=== PATIENT | female | born 1930 | race Caucasian/White ===

== ENCOUNTER 2021-04-20 09:51 | Emergency (ER) | payer MEDICARE, OTHER ==
[2021-04-20] MEDS ORDERED: Sodium Chloride 0.9% 10 ML Syringe FLUSH PRN (10:11)
[2021-04-20] MEDS ORDERED: Metolazone 2.5 MG Tab PO STA (10:12)
[2021-04-20] MEDS ORDERED: Furosemide 40 MG/4 ML VIAL IVPUSH ONE (10:12)
[2021-04-20 10:21] VITALS: PULSE 93
--- NOTE | 2021-04-20 12:02 | EDM.PDOC ---
ED HPI GENERAL MEDICAL PROBLEM - General Chief Complaint: Cardiovascular Problem Stated Complaint: SOB Time Seen by Provider: 04/20/21 10:00 Source of Information: Reports: Patient, Family History Limitations: Reports: No Limitations - History of Present Illness INITIAL COMMENTS - FREE TEXT/NARRATIVE: Patient presented to the ED because of dyspnea for 3 days,chest pain and wea kness. She is being treated because of COPD exacerbation for 5 days now with steroids,an antibiotics , and neb treatments. There is no associated fever, chills but she has a non-productive cough and wants to cough out her phlegm but she can't. Chest Pain Score (Numeric/FACES): 9 - Related Data Allergies Allergy/AdvReac Type Severity Reaction Status Date / Time budesonide [From Symbicort] Allergy Other Verified 04/20/21 10:05 formoterol fumarate Allergy Other Verified 04/20/21 10:05 [From Symbicort] Sulfa (Sulfonamide Allergy Rash Verified 04/20/21 10:05 Antibiotics) Home Meds: Home Meds Acetaminophen [Tylenol Extra Strength] 1,000 mg PO DAILY PRN 06/30/15 [History] Lutein 6 mg PO DAILY 06/30/15 [History] Montelukast [Singulair] 10 mg PO DAILY 06/30/15 [History] Multivitamin [Multivitamins] 1 tab PO DAILY 06/30/15 [History] diphenhydrAMINE [Benadryl] 25 mg PO BEDTIME 06/30/15 [History] Beclomethasone Dipropionate [Qvar 40 Mcg] 2 puff INH BID 07/01/15 [History] Ipratropium [Atrovent] 2.5 ml INH QID 07/01/15 [History] raNITIdine HCL [Zantac 75] 75 mg PO DAILY PRN 04/06/16 [History] Codeine/guaiFENesin [Robitussin AC] 10 ml PO Q6H PRN #0 cup 04/09/16 [Rx] Diltiazem [Cardizem CD] 240 mg PO DAILY #30 cap.cd 04/09/16 [Rx] Furosemide [Lasix] 20 mg PO DAILY #30 tablet 04/09/16 [Rx] Metoprolol Tartrate [Lopressor] 50 mg PO Q12H tablet 04/09/16 [Rx] Polyethylene Glycol 3350 [MiraLAX] 17 gm PO DAILY PRN #0 packet 04/09/16 [Rx] Prednisone [IJD: predniSONE] 10 mg PO WITHBREAKFAST tablet 04/09/16 [Rx] Warfarin [Coumadin] 2.5 mg PO 1600 tablet 04/09/16 [Rx] guaiFENesin [Mucinex] 600 mg PO BID #10 tab.er 04/20/21 [Rx] Past Medical History HEENT History: Reports: Cataract, Impaired Vision Cardiovascular History: Reports: Afib, Blood Clots/VTE/DVT, Hypertension, Other (See Below) Other Cardiovascular History: IRREGULAR HEART RATE BUT NOT FIB REPORTED Respiratory History: Reports: Asthma, Bronchitis, Recurrent, COPD, Pneumonia, Recurrent, SOB Gastrointestinal History: Reports: Bowel Obstruction, Diverticulosis, Hiatal Hernia Genitourinary History: Reports: UTI, Recurrent Other Genitourinary History: 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 HISTORY OF REUMATIC FEVER A [employer] History: Reports: Musculoskeletal History: Reports: Back Pain, Chronic, Osteoarthritis Endocrine/Metabolic History: Reports: Osteoporosis Hematologic History: Reports: Other (See Below) Other Hematologic History: GI bleed Oncologic (Cancer) History: Reports: Colon, Renal Dermatologic History: Reports: Other (See Below) Other Dermatologic History: DRY SKIN IN WINTER TIME. - Past Surgical History HEENT Surgical History: Reports: Cataract Surgery, Tonsillectomy, Other (See Below) Cardiovascular Surgical History: Reports: Vascular Surgery, Other (See Below) Female Surgical History: Reports: Nephrectomy, Other (See Below) Musculoskeletal Surgical History: Reports: Other (See Below) ED ROS GENERAL - Review of Systems Review Of Systems: See Below Constitutional: Reports: No Symptoms HEENT: Reports: No Symptoms Respiratory: Reports: Cough Cardiovascular: Reports: No Symptoms Endocrine: Reports: No Symptoms GI/Abdominal: Reports: No Symptoms Musculoskeletal: Reports: No Symptoms Skin: Reports: No Symptoms Neurological: Reports: No Symptoms Psychiatric: Reports: No Symptoms Hematologic/Lymphatic: Reports: No Symptoms Immunologic: Reports: No Symptoms ED EXAM, GENERAL - Physical Exam Exam: See Below Exam Limited By: No Limitations General Appearance: Alert, No Apparent Distress Nose: Normal Inspection, Normal Mucosa Throat/Mouth: Normal Inspection Head: Atraumatic, Normocephalic Neck: Normal Inspection, Supple, Non-Tender Respiratory/Chest: No Respiratory Distress, Rhonchi Cardiovascular: Normal Peripheral Pulses, Regular Rate, Rhythm, No Edema GI/Abdominal: Normal Bowel Sounds, Soft, Non-Tender, No Organomegaly Back Exam: Normal Inspection, Full Range of Motion Extremities: Normal Inspection, Normal Range of Motion, Non-Tender Neurological: Alert, Oriented, CN II-XII Intact Psychiatric: Normal Affect, Normal Mood Skin Exam: Warm, Dry, Intact, Normal Color #1 Interpretation EKG Date: 04/20/21 Time: 09:58 Rhythm: A-Fib Rate (Beats/Min): 80 Lorman: Normal P-Wave: Present QRS: RBBB ST-T: Normal QT: Normal Comparison: No Change EKG Interpretation Comments: AFIB RBBB Course - Vital Signs Text/Narrative:: Lab/EKG/CXR result was reviewed and discussed with patient and her daughter Last Recorded V/S: Last Vital Signs Temp 36.3 C 04/20/21 09:51 Pulse 93 04/20/21 11:45 Resp 20 04/20/21 11:45 BP 139/83 04/20/21 11:45 Pulse Ox 92 L 04/20/21 11:45 - Orders/Labs/Meds Labs: Laboratory Tests 04/20/21 04/20/21 04/20/21 Range/Units 10:35 10:35 10:35 WBC 18.4 H (3.0-10.3) x10-3/uL RBC 4.79 (3.60-5.20) x10(6)uL Hgb 15.0 (11.4-15.5) g/dL Hct 47.0 (34.2-48.2) % MCV 98.0 (76.7-100.5) fL MCH 31.2 (23.9-33.9) pg MCHC 31.9 (31.9-34.8) g/dL RDW 14.4 (12.3-16.5) % Plt Count 762 H (151-488) x10(3)uL MPV 9.1 (7.1-12.4) fL Add Manual Diff Yes Neutrophils % (Manual) 90 H (46-82) % Lymphocytes % (Manual) 6 L (13-37) % Monocytes % (Manual) 4 (4-12) % Sodium 143 (135-145) mmol/L Potassium 4.7 (3.5-5.3) mmol/L Chloride 103 (100-110) mmol/L Carbon Dioxide 32 (21-32) mmol/L BUN 35 H (7-18) mg/dL Creatinine 1.2 H (0.55-1.02) mg/dL Est Cr Clr Drug Dosing 26.81 mL/min Estimated GFR (MDRD) 42 L (>60) BUN/Creatinine Ratio 29.2 H (9-20) Glucose 108 (80-116) mg/dL Calcium 9.2 (8.6-10.2) mg/dL Total Bilirubin 0.9 (0.1-1.3) mg/dL AST 32 H (5-25) IU/L ALT 29 (12-36) U/L Alkaline Phosphatase 68 (56-112) IU/L Troponin I 12.9 (4.0-60.3) pg/mL Total Protein 7.0 (6.0-8.0) g/dL Albumin 4.1 (3.2-4.6) g/dL Globulin 2.9 g/dL Albumin/Globulin Ratio 1.4 Urine Color (YELLOW) Urine Appearance (CLEAR) Urine pH (5.0-6.5) Ur Specific [place] (1.010-1.025) Urine Protein (NEGATIVE) mg/dL Urine Glucose (UA) (NORMAL) mg/dL Urine Ketones (NEGATIVE) mg/dL Urine Occult Blood (NEGATIVE) Urine Nitrite (NEGATIVE) Urine Bilirubin (NEGATIVE) Urine Urobilinogen (NEGATIVE) mg/dL Ur Leukocyte Esterase (NEGATIVE) Urine RBC (0-5) Urine WBC (0-5) Ur Squamous Epith Cells (NS,R,O) Urine Bacteria (NS) 04/20/21 Range/Units 12:00 WBC (3.0-10.3) x10-3/uL RBC (3.60-5.20) x10(6)uL Hgb (11.4-15.5) g/dL Hct (34.2-48.2) % MCV (76.7-100.5) fL MCH (23.9-33.9) pg MCHC (31.9-34.8) g/dL RDW (12.3-16.5) % Plt Count (151-488) x10(3)uL MPV (7.1-12.4) fL Add Manual Diff Neutrophils % (Manual) (46-82) % Lymphocytes % (Manual) (13-37) % Monocytes % (Manual) (4-12) % Sodium (135-145) mmol/L Potassium (3.5-5.3) mmol/L Chloride (100-110) mmol/L Carbon Dioxide (21-32) mmol/L BUN (7-18) mg/dL Creatinine (0.55-1.02) mg/dL Est Cr Clr Drug Dosing mL/min Estimated GFR (MDRD) (>60) BUN/Creatinine Ratio (9-20) Glucose (80-116) mg/dL Calcium (8.6-10.2) mg/dL Total Bilirubin (0.1-1.3) mg/dL AST (5-25) IU/L ALT (12-36) U/L Alkaline Phosphatase (56-112) IU/L Troponin I (4.0-60.3) pg/mL Total Protein (6.0-8.0) g/dL Albumin (3.2-4.6) g/dL Globulin g/dL Albumin/Globulin Ratio Urine Color Yellow (YELLOW) Urine Appearance Clear (CLEAR) Urine pH 5.0 (5.0-6.5) Ur Specific [place] 1.020 (1.010-1.025) Urine Protein Negative (NEGATIVE) mg/dL Urine Glucose (UA) Normal (NORMAL) mg/dL Urine Ketones Negative (NEGATIVE) mg/dL Urine Occult Blood Negative (NEGATIVE) Urine Nitrite Negative (NEGATIVE) Urine Bilirubin Negative (NEGATIVE) Urine Urobilinogen Normal (NEGATIVE) mg/dL Ur Leukocyte Esterase Negative (NEGATIVE) Urine RBC 0-5 (0-5) Urine WBC 0-5 (0-5) Ur Squamous Epith Cells Few H (NS,R,O) Urine Bacteria Few H (NS) Meds: Medications Discontinued Medications Generic Name Dose Route Start Last Admin Trade Name Freq PRN Reason Stop Dose Admin Furosemide 40 mg 04/20/21 10:12 Furosemide 40 Mg/4 Ml Vial IVPUSH 04/20/21 10:13 NOW ONE Metolazone 2.5 mg 04/20/21 10:12 Metolazone 2.5 Mg Tab PO 04/20/21 10:13 NOW STA Sodium Chloride 10 ml 04/20/21 10:11 Sodium Chloride 0.9% 10 Ml Syringe FLUSH ASDIRECTED PRN Keep Vein Open Departure - Departure Time of Disposition: 12:00 Disposition: Home, Self-Care 01 Condition: Good Clinical Impression: Dehydration, COPD (chronic obstructive pulmonary disease) Prescriptions: guaiFENesin [Mucinex] 600 mg PO BID #10 tab.er Instructions: Chronic Obstructive Pulmonary Disease Exacerbation, [id number], Dehydration, Elderly, [id number] Referrals: Tony Avendano MD [Primary Care Provider] - Forms: ED Department Discharge Additional Instructions: Please read discharge instructions on dehydration and COPD Drink at least 1.5 liters of fluids daily for 3 days Continue your nebulizer treatment and steroids Take Mucinex 600 mg twice daily for 5 day We will call you with regards for the result of your urine test Sepsis Event Note (ED) - Evaluation Sepsis Screening Result: No Definite Risk
[2021-04-20 15:58] VITALS: BP 139/83
--- NOTE | 2021-04-20 17:19 | CR ---
INDICATION: Dyspnea. CHEST ONE VIEW: AP portable upright view of the chest 04/20/21 was compared with 04/09/16 and 04/08/16, again revealing the heart to be enlarged with tortuous aorta calcified in the arch. Overlying EKG leads are noted. Bibasilar pleuroparenchymal changes are noted which may be on the basis of pneumonia and pleuritis, more prominent on the left than right. Moderately large fixed hiatal hernia is noted. There appears to be some hyperaeration and flattening of diaphragm leaf suggesting COPD - correlate clinically. IMPRESSION: 1. ASHD with cardiomegaly - no definite CHF. 2. Bibasilar pleuroparenchymal changes compatible with pneumonia and pleuritis, somewhat more prominent on the left than right. 3. Probable COPD - correlate clinically. MTDD
== END 2021-04-20 12:30 | disposition home or self-care (01) ==
LOC: FB.ED 09:51
DX: J44.9 Chronic obstructive pulmonary disease, unspecified (principal); E86.0 Dehydration; I10 Essential (primary) hypertension; Z88.2 Allergy status to sulfonamides; Z88.8 Allergy status to other drugs, medicaments and biological substances
CPT/HCPCS: 36415; 71045; 80053; 81001; 84484; 85025; 93005; 93010; 99284; 99285-25

== ENCOUNTER 2022-03-04 12:10 | Inpatient (IN) | payer MEDICARE, OTHER ==
[2022-03-04 13:18] LABS: BASE EXCESS VENOUS,POC 16 mmol/L (-2 - 3+); PCO2 VENOUS,POC 65 mmHg (41-51); PH VENOUS,POC 7.44 pH Units (7.32-7.43)
[2022-03-04 15:50] LABS: CORONAVIRUS COVID-19 NAA NEGATIVE (NEGATIVE)
[2022-03-04] MEDS ORDERED: Sodium Chloride 0.9% 10 ML Syringe FLUSH PRN (16:54)
[2022-03-04] MEDS ORDERED: Warfarin Sliding Scale PO SCH (17:00)
[2022-03-04] MEDS ORDERED: Warfarin 5 MG Tab PO ONE (17:15)
[2022-03-04] MEDS ORDERED: guaiFENesin 100 MG/5 ML Soln 5 ML UD Cup PO PRN (17:38)
[2022-03-04] MEDS ORDERED: Loperamide 2 MG Cap PO PRN (17:38)
[2022-03-04] MEDS ORDERED: Nitroglycerin 0.4 MG Tab.SL SL PRN (17:38)
[2022-03-04] MEDS ORDERED: Carboxymethylcellulose Sodium 0.5% Ophth Soln 15 ML Bottle EYEBOTH PRN (17:38)
[2022-03-04] MEDS ORDERED: Bisacodyl 10 MG Supp RECTAL PRN (17:38)
[2022-03-04] MEDS ORDERED: Acetaminophen 500 MG Tab PO PRN (17:38)
[2022-03-04] MEDS ORDERED: Magnesium Hydroxide 400 MG/5 ML Susp 30 ML Cup PO PRN (17:38)
[2022-03-04] MEDS ORDERED: Albuterol/Ipratropium 3.0-0.5 MG/3 ML Neb Soln INH PRN (17:38)
[2022-03-04] MEDS: Sodium Chloride 0.9% 1,000 ML IV SCH (18:00)
[2022-03-04] MEDS ORDERED: Aluminum Hydroxide/Magnesium Hydroxide Susp 30 ML Cup PO PRN (18:04)
[2022-03-04] MEDS: Metoprolol Tartrate 100 MG Tab PO SCH (21:20)
[2022-03-04] MEDS: Acetaminophen 325 MG Tab PO SCH (21:20)
[2022-03-04] MEDS: diphenhydrAMINE 50 MG Cap PO SCH (21:21)
[2022-03-04] MEDS: Melatonin 3 MG Tab PO SCH (21:21)
[2022-03-05] MEDS: Magnesium Oxide 400 MG Tab PO SCH (08:32)
[2022-03-05] MEDS: Multivitamin Tab PO SCH (08:32)
[2022-03-05] MEDS: Acetaminophen 325 MG Tab PO SCH ×3 (08:32→20:33)
[2022-03-05] MEDS: Cholecalciferol (Vitamin D3) 25 MCG Tab PO SCH (08:33)
[2022-03-05] MEDS: Isosorbide Mononitrate 30 MG Tab.ER PO SCH (08:33)
[2022-03-05] MEDS: Montelukast 10 MG Tab PO SCH (08:34)
[2022-03-05] MEDS ORDERED: acetaZOLAMIDE 250 MG Tab PO ONE ×2 (08:41)
[2022-03-05] MEDS ORDERED: Non-Formulary Medication 1 Each (Cholecalciferol (Vitamin D3) [Vitamin D3] 10 MCG Tablet) PO SCH (09:00)
[2022-03-05] MEDS: Metoprolol Tartrate 100 MG Tab PO SCH ×2 (09:54→20:32)
[2022-03-05] MEDS: QVAR 40 MCG INH SCH ×2 (14:03→20:35)
[2022-03-05] MEDS: Sodium Chloride 0.9% 1,000 ML IV SCH (14:18)
[2022-03-05] MEDS ORDERED: Warfarin 5 MG Tab PO ONE (16:00)
[2022-03-05] MEDS: Melatonin 3 MG Tab PO SCH (20:33)
[2022-03-05] MEDS: diphenhydrAMINE 50 MG Cap PO SCH (20:33)
[2022-03-06] MEDS ORDERED: acetaZOLAMIDE 250 MG Tab PO ONE (08:24)
[2022-03-06] MEDS: Isosorbide Mononitrate 30 MG Tab.ER PO SCH (09:45)
[2022-03-06] MEDS: Magnesium Oxide 400 MG Tab PO SCH (09:48)
[2022-03-06] MEDS: Metoprolol Tartrate 100 MG Tab PO SCH ×2 (09:48→20:18)
[2022-03-06] MEDS: Montelukast 10 MG Tab PO SCH (09:49)
[2022-03-06] MEDS: Acetaminophen 325 MG Tab PO SCH ×3 (09:49→20:18)
[2022-03-06] MEDS: Multivitamin Tab PO SCH (09:49)
[2022-03-06] MEDS: Cholecalciferol (Vitamin D3) 25 MCG Tab PO SCH (09:50)
[2022-03-06] MEDS: QVAR 40 MCG INH SCH ×2 (09:51→20:19)
[2022-03-06] MEDS ORDERED: Warfarin 5 MG, Warfarin 2.5 MG PO ONE ×2 (16:00)
[2022-03-06] MEDS: Melatonin 3 MG Tab PO SCH (20:17)
[2022-03-06] MEDS: diphenhydrAMINE 50 MG Cap PO SCH (20:18)
[2022-03-07 06:58] LABS: BASE EXCESS VENOUS,POC 9 mmol/L (-2 - 3+); PCO2 VENOUS,POC 78 mmHg (41-51)
[2022-03-07] MEDS: QVAR 40 MCG INH SCH (08:24)
[2022-03-07 08:59] VITALS: BP 133/61; PULSE 72
[2022-03-07] MEDS: Isosorbide Mononitrate 30 MG Tab.ER PO SCH (09:11)
[2022-03-07] MEDS: Metoprolol Tartrate 100 MG Tab PO SCH (09:12)
[2022-03-07] MEDS: Multivitamin Tab PO SCH (09:12)
[2022-03-07] MEDS: Magnesium Oxide 400 MG Tab PO SCH (09:12)
[2022-03-07] MEDS: Montelukast 10 MG Tab PO SCH (09:12)
[2022-03-07] MEDS: Cholecalciferol (Vitamin D3) 25 MCG Tab PO SCH (09:12)
[2022-03-07] MEDS: Acetaminophen 325 MG Tab PO SCH (09:13)
[2022-03-08] MEDS ORDERED: acetaZOLAMIDE 250 MG Tab PO SCH (08:00)
== END 2022-03-07 12:20 | disposition home health service (06) | DRG 641 ==
LOC: FB.ED 12:10 → FB.MS 15:39
PROVIDERS: ADMIT Family Medicine; ATTEND Family Medicine
DX: E87.3 Alkalosis (principal); I48.20 Chronic atrial fibrillation, unspecified; I50.32 Chronic diastolic (congestive) heart failure; I82.409 Acute embolism and thrombosis of unspecified deep veins of unspecified lower extremity; N17.9 Acute kidney failure, unspecified; I13.0 Hypertensive heart and chronic kidney disease with heart failure and stage 1 through stage 4 chronic kidney disease, or unspecified chronic kidney disease; D68.8 Other specified coagulation defects; E87.8 Other disorders of electrolyte and fluid balance, not elsewhere classified; Z20.822 Contact with and (suspected) exposure to COVID-19; Z66 Do not resuscitate; R06.00 Dyspnea, unspecified; R60.9 Edema, unspecified; E86.9 Volume depletion, unspecified; T50.2X5A Adverse effect of carbonic-anhydrase inhibitors, benzothiadiazides and other diuretics, initial encounter; N18.9 Chronic kidney disease, unspecified; Z79.01 Long term (current) use of anticoagulants; Z79.899 Other long term (current) drug therapy; H54.7 Unspecified visual loss; I48.91 Unspecified atrial fibrillation; Z86.718 Personal history of other venous thrombosis and embolism; R53.1 Weakness; K57.90 Diverticulosis of intestine, part unspecified, without perforation or abscess without bleeding; K44.9 Diaphragmatic hernia without obstruction or gangrene; R79.1 Abnormal coagulation profile; I87.2 Venous insufficiency (chronic) (peripheral); Z85.038 Personal history of other malignant neoplasm of large intestine; Z85.42 Personal history of malignant neoplasm of other parts of uterus; J44.9 Chronic obstructive pulmonary disease, unspecified; J45.40 Moderate persistent asthma, uncomplicated; M19.90 Unspecified osteoarthritis, unspecified site; M81.0 Age-related osteoporosis without current pathological fracture; Z98.49 Cataract extraction status, unspecified eye; Z85.048 Personal history of other malignant neoplasm of rectum, rectosigmoid junction, and anus; Z85.528 Personal history of other malignant neoplasm of kidney; Z90.5 Acquired absence of kidney; Z88.2 Allergy status to sulfonamides; Z88.8 Allergy status to other drugs, medicaments and biological substances; Z87.440 Personal history of urinary (tract) infections; Z87.01 Personal history of pneumonia (recurrent)
CPT/HCPCS: 0241U; 36415; 71045; 71046; 80048; 80053; 81001; 83605; 83880; 84484; 85025; 85610; 86140; 87040; 93005; 93010; 99284; 99285-25; A9270-GY; J3490; J7030; U0002

== ENCOUNTER 2022-04-06 12:36 | Inpatient (IN) | payer MEDICARE, OTHER ==
[2022-04-06 14:17] LABS: BASE EXCESS VENOUS,POC 1 mmol/L (-2 - 3+); PCO2 VENOUS,POC 79 mmHg (41-51); PH VENOUS,POC 7.21 pH Units (7.32-7.43)
[2022-04-06] MEDS ORDERED: Albuterol/Ipratropium 3.0-0.5 MG/3 ML Neb Soln INH PRN (16:42)
[2022-04-06] MEDS ORDERED: Loperamide 2 MG Cap PO PRN (16:42)
[2022-04-06] MEDS ORDERED: Bisacodyl 10 MG Supp RECTAL PRN (16:42)
[2022-04-06] MEDS ORDERED: Acetaminophen 325 MG Tab PO PRN (16:42)
[2022-04-06] MEDS ORDERED: Carboxymethylcellulose Sodium 0.5% Ophth Soln 15 ML Bottle EYEBOTH PRN (16:42)
[2022-04-06] MEDS ORDERED: Nitroglycerin 0.4 MG Tab.SL SL PRN (16:42)
[2022-04-06] MEDS: Sodium Chloride 0.9% 10 ML Syringe FLUSH PRN ×2 (17:40→17:55)
[2022-04-06] MEDS ORDERED: Furosemide 40 MG/4 ML VIAL IVPUSH ONE (17:43)
[2022-04-06] MEDS: Metoprolol Tartrate 25 MG Tab PO SCH (22:23)
[2022-04-06] MEDS: diphenhydrAMINE 25 MG Cap PO SCH (22:23)
[2022-04-06] MEDS: Acetaminophen 325 MG Tab PO SCH (22:24)
[2022-04-06] MEDS: Melatonin 3 MG Tab PO SCH (22:24)
[2022-04-07] MEDS: Isosorbide Mononitrate 30 MG Tab.ER PO SCH (08:38)
[2022-04-07] MEDS: Magnesium Oxide 400 MG Tab PO SCH (08:38)
[2022-04-07] MEDS: Montelukast 10 MG Tab PO SCH (08:41)
[2022-04-07] MEDS: Multivitamin Tab PO SCH (08:41)
[2022-04-07] MEDS: Acetaminophen 325 MG Tab PO SCH ×3 (08:42→20:24)
[2022-04-07] MEDS: Metoprolol Tartrate 25 MG Tab PO SCH ×2 (08:44→20:23)
[2022-04-07] MEDS ORDERED: Warfarin 5 MG Tab PO SCH (09:00)
[2022-04-07] MEDS ORDERED: Warfarin Sliding Scale PO SCH ×2 (09:00→17:00)
[2022-04-07] MEDS ORDERED: acetaZOLAMIDE 250 MG Tab PO SCH (09:00)
[2022-04-07] MEDS: Budesonide 0.5 MG/2 ML Neb Susp NEB SCH ×2 (11:37→20:24)
[2022-04-07] MEDS ORDERED: Furosemide 40 MG/4 ML VIAL IVPUSH ONE ×2 (16:53→17:00)
[2022-04-07] MEDS ORDERED: Morphine 10 MG/0.5 ML Oral Syringe PO PRN (16:55)
[2022-04-07] MEDS ORDERED: Warfarin 5 MG Tab PO ONE (17:00)
[2022-04-07] MEDS: Sodium Chloride 0.9% 10 ML Syringe FLUSH PRN (17:07)
[2022-04-07] MEDS: Melatonin 3 MG Tab PO SCH (20:24)
[2022-04-07] MEDS: diphenhydrAMINE 25 MG Cap PO SCH (20:28)
[2022-04-08] MEDS: Budesonide 0.5 MG/2 ML Neb Susp NEB SCH ×2 (06:34→19:59)
[2022-04-08 06:49] LABS: BASE EXCESS VENOUS,POC 3 mmol/L (-2 - 3+); PCO2 VENOUS,POC 64 mmHg (41-51)
[2022-04-08] MEDS ORDERED: Furosemide 40 MG/4 ML VIAL IVPUSH SCH (09:00)
[2022-04-08] MEDS: Magnesium Oxide 400 MG Tab PO SCH (09:34)
[2022-04-08] MEDS: Montelukast 10 MG Tab PO SCH (09:36)
[2022-04-08] MEDS: Acetaminophen 325 MG Tab PO SCH ×3 (09:36→20:00)
[2022-04-08] MEDS: Multivitamin Tab PO SCH (09:36)
[2022-04-08] MEDS: Metoprolol Tartrate 25 MG Tab PO SCH ×2 (09:37→20:02)
[2022-04-08] MEDS: Isosorbide Mononitrate 30 MG Tab.ER PO SCH (09:53)
[2022-04-08] MEDS: Sodium Chloride 0.9% 10 ML Syringe FLUSH PRN ×3 (10:08→16:14)
[2022-04-08] MEDS: Furosemide 40 MG/4 ML VIAL IVPUSH SCH ×2 (11:36→16:07)
[2022-04-08] MEDS: Metolazone 5 MG Tab PO SCH (15:22)
[2022-04-08] MEDS ORDERED: Warfarin 2.5 MG Tab PO ONE (16:00)
[2022-04-08] MEDS: diphenhydrAMINE 25 MG Cap PO SCH (19:59)
[2022-04-08] MEDS: Melatonin 3 MG Tab PO SCH (20:01)
[2022-04-09] MEDS: Budesonide 0.5 MG/2 ML Neb Susp NEB SCH ×2 (06:15→21:04)
[2022-04-09] MEDS: Metolazone 5 MG Tab PO SCH (06:53)
[2022-04-09] MEDS: Furosemide 40 MG/4 ML VIAL IVPUSH SCH ×2 (08:35→14:03)
[2022-04-09] MEDS: Magnesium Oxide 400 MG Tab PO SCH (09:04)
[2022-04-09] MEDS: Montelukast 10 MG Tab PO SCH (09:04)
[2022-04-09] MEDS: Metoprolol Tartrate 25 MG Tab PO SCH ×2 (09:05→21:04)
[2022-04-09] MEDS: Acetaminophen 325 MG Tab PO SCH ×3 (09:07→21:06)
[2022-04-09] MEDS: Isosorbide Mononitrate 30 MG Tab.ER PO SCH (09:13)
[2022-04-09] MEDS: Multivitamin Tab PO SCH (09:15)
[2022-04-09] MEDS ORDERED: cefTRIAXone 2 GM Vial IVPUSH ONE (10:16)
[2022-04-09] MEDS ORDERED: Acetaminophen/HYDROcodone 325-5 MG Tab PO PRN (10:29)
[2022-04-09] MEDS: Sodium Chloride 0.9% 10 ML Syringe FLUSH PRN (14:06)
[2022-04-09] MEDS ORDERED: Ondansetron 4 MG Tab.DIS PO PRN (14:56)
[2022-04-09] MEDS ORDERED: Warfarin 2.5 MG Tab PO ONE (16:00)
[2022-04-09] MEDS: diphenhydrAMINE 25 MG Cap PO SCH (21:04)
[2022-04-09] MEDS: Melatonin 3 MG Tab PO SCH (21:05)
[2022-04-10 03:29] VITALS: BP 112/64; PULSE 93
[2022-04-10] MEDS: Budesonide 0.5 MG/2 ML Neb Susp NEB SCH (06:28)
[2022-04-10] MEDS ORDERED: Ondansetron 4 MG/2 ML SDV IVPUSH PRN (08:05)
[2022-04-10] MEDS ORDERED: LORazepam 2 MG/ML SDV IVPUSH PRN (10:17)
[2022-04-10] MEDS: Sodium Chloride 0.9% 10 ML Syringe FLUSH PRN ×2 (11:48→11:55)
[2022-04-10] MEDS: Morphine 2 MG/ML SYRINGE IVPUSH PRN ×2 (11:49→18:19)
[2022-04-10] MEDS: Furosemide 40 MG/4 ML VIAL IVPUSH SCH (12:25)
[2022-04-10] MEDS: Metolazone 5 MG Tab PO SCH (12:25)
[2022-04-10] MEDS ORDERED: Atropine 1% Ophth Soln 5 ML BOTTLE SL PRN ×2 (17:06→17:16)
== END 2022-04-10 20:43 | disposition expired | DRG 291 ==
LOC: FB.ED 12:36 → OBSVTOIN 15:20 → FB.ICU 15:20 → INTOOBSV 15:20 → FB.MS 15:47
PROVIDERS: ADMIT Family Medicine; ATTEND Student in an Organized Health Care Education/Training Program
DX: I50.9 Heart failure, unspecified (principal); I11.0 Hypertensive heart disease with heart failure; J96.22 Acute and chronic respiratory failure with hypercapnia; I48.91 Unspecified atrial fibrillation; I50.33 Acute on chronic diastolic (congestive) heart failure; I48.20 Chronic atrial fibrillation, unspecified; I82.409 Acute embolism and thrombosis of unspecified deep veins of unspecified lower extremity; Z51.5 Encounter for palliative care; Z66 Do not resuscitate; I46.9 Cardiac arrest, cause unspecified; J45.40 Moderate persistent asthma, uncomplicated; J44.9 Chronic obstructive pulmonary disease, unspecified; I87.2 Venous insufficiency (chronic) (peripheral); I25.10 Atherosclerotic heart disease of native coronary artery without angina pectoris; M19.90 Unspecified osteoarthritis, unspecified site; G89.29 Other chronic pain; M54.9 Dorsalgia, unspecified; M81.0 Age-related osteoporosis without current pathological fracture; R63.0 Anorexia; H54.7 Unspecified visual loss; K57.90 Diverticulosis of intestine, part unspecified, without perforation or abscess without bleeding; R79.89 Other specified abnormal findings of blood chemistry; E87.8 Other disorders of electrolyte and fluid balance, not elsewhere classified; R53.1 Weakness; K44.9 Diaphragmatic hernia without obstruction or gangrene; L98.499 Non-pressure chronic ulcer of skin of other sites with unspecified severity; D75.838 Other thrombocytosis; Z90.49 Acquired absence of other specified parts of digestive tract; Z90.5 Acquired absence of kidney; Z85.528 Personal history of other malignant neoplasm of kidney; Z85.048 Personal history of other malignant neoplasm of rectum, rectosigmoid junction, and anus; Z88.2 Allergy status to sulfonamides; Z88.8 Allergy status to other drugs, medicaments and biological substances; Z98.41 Cataract extraction status, right eye; Z98.42 Cataract extraction status, left eye; Z98.890 Other specified postprocedural states; Z87.440 Personal history of urinary (tract) infections; Z87.19 Personal history of other diseases of the digestive system; Z85.038 Personal history of other malignant neoplasm of large intestine; Z79.01 Long term (current) use of anticoagulants; Z99.81 Dependence on supplemental oxygen; Z79.899 Other long term (current) drug therapy
CPT/HCPCS: 36415; 71045; 80048; 80053; 81001; 83605; 83880; 84484; 85025; 85610; 86140; 87040; 93005; 93010; 94640; 99284; 99285-25; A9270-GY; J0696; J1940; J2270; J3490; J7620; Q0162